=== PATIENT | female | born 1955 | race Caucasian/White ===

== ENCOUNTER 2023-10-15 06:15 | Day surgery (SDC) | payer OTHER ==
[~2023-10-15] VITALS: Ht 152.4 cm; Wt 56.7 kg
[2023-10-15] MEDS ORDERED: ceFAZolin SODIUM 2 GM in D5W 100 ML IV ONE (07:00)
[2023-10-15] MEDS ORDERED: LIDOCAINE 1%, 20 ML MDV 20 ML ONE (07:52)
[2023-10-15 08:44] VITALS: O2SAT 98
[2023-10-15] MEDS ORDERED: KETOROLAC TROMETHAMINE 30 MG VIAL ONE (12:10)
[2023-10-15] MEDS ORDERED: LR 1,000 ML IV.SOLN IV ONE (12:10)
[2023-10-15] MEDS ORDERED: fentaNYL CITRATE/PF 100 MCG/2 ML AMP ONE (12:10)
[2023-10-15] MEDS ORDERED: METOCLOPRAMIDE HCL 10 MG/2 ML VIAL ONE (12:10)
[2023-10-15] MEDS ORDERED: ONDANSETRON HCL 4 MG/2 ML VIAL ONE (12:10)
[2023-10-15] MEDS ORDERED: WATER FOR IRRIGATION,STERILE 1,000 ML IRRIG.SOLN IR ONE (12:10)
[2023-10-15] MEDS ORDERED: MIDAZOLAM HCL 2 MG/2 ML VIAL (VERSED) ONE (12:10)
[2023-10-15] MEDS ORDERED: LIDOCAINE 2%, 20 ML MDV ONE (12:10)
[2023-10-15] MEDS ORDERED: PROPOFOL 200MG/ 20ML VIAL (DIPRIVAN) IV ONE (12:10)
[2023-10-15] MEDS ORDERED: BUPIVACAINE /PF 0.25% 30 ML VIAL INJ ONE (12:10)
[2023-10-15] MEDS ORDERED: SEVOFLURANE 15 MIN GAS INH ONE (12:10)
[2023-10-15] MEDS ORDERED: NS IRRIG SOLN 1000 ML IR ONE (12:10)
[2023-10-15] MEDS ORDERED: ACETAMINOPHEN I.V. 1000 MG 100 ML IV ONE (12:45)
[2023-10-15] MEDS ORDERED: HYDROmorphone 1 MG/ML INJ. CARTRIDGE IVP PRN (13:00)
[2023-10-15] MEDS ORDERED: KETOROLAC TROMETHAMINE 30 MG VIAL IVP PRN (13:00)
[2023-10-15] MEDS ORDERED: LR 1,000 ML IV SCH (13:00)
[2023-10-15] MEDS ORDERED: HYDROmorphone 2 MG/ML VIAL IVP PRN (13:00)
[2023-10-15] MEDS ORDERED: ONDANSETRON HCL 4 MG/2 ML VIAL IVP PRN ×2 (13:00→13:30)
[2023-10-15] MEDS ORDERED: ACET1TAB93 PO (13:18)
[2023-10-15] MEDS ORDERED: HYDROcodone/ACETAMIN 5-325 MG TAB (NORCO/ VICODIN) PO PRN (13:30)
[2023-10-15] MEDS ORDERED: MORPHINE 4 MG INJ. 4 MG/ML VIAL IVP PRN (13:30)
[2023-10-15 15:43] VITALS: BP_SYST 130; PULSE 65; RESP 20
== END 2023-10-16 15:17 | disposition home or self-care (01) ==
LOC: SDS 06:15 → SMU 06:16 → SDS 10-16 15:17
PROVIDERS: ATTEND Surgery
DX: D24.1 Benign neoplasm of right breast (principal); I10 Essential (primary) hypertension; I25.2 Old myocardial infarction; Z98.890 Other specified postprocedural states
CPT/HCPCS: 87081; 19120; 77065; 76098; 19285; 88305; J3490; J0690; J1885; J2765; J3465; J2405; J2704; J3010; J7060; J7120; C1819; J0131; J2001